=== PATIENT | female | born 1935 | race Caucasian/White ===

== ENCOUNTER 2017-01-26 06:23 | Day surgery (SDC) | payer MEDICARE, BC ==
[~2017-01-26 06:23] MED LIST: ADULT ASPIRIN81 MG PO; ALLOPURINOL100 M1 PO; AMIODARONE HCL200 MG; ASPIRIN ENTERI325 MG PO; ASPIRIN81 M1 PO; AYR SALINE NASA22 ML NS; BACTRIM DS1 TA1 PO; CALCIUM ANTAC1000 MG PO; CELEXA20 MG; CERTAVITE W/LU1 EACH PO; CIPRO500 M1 PO; CITALOPRAM HBR20 M1 PO; CITALOPRAM HBR20 MG; CITALOPRAM HBR20 MG PO; CO Q-10400 MG PO; COUMADIN2 MG; COUMADIN4 MG; CPAP; CULTURELLE1 EACH PO; DARVOCET-N 1001 TAB; DITROPAN5 MG PO; DULCOLAX10 MG PR; DURAGESIC1 PATCH .; ELIQUIS2.5 M1 PO; FLAGYL500 MG PO; FUROSEMIDE40 M2 PO; GABAPENTIN100 M1 PO; H; IPRAT-ALBUT 0.5-3 ML INH; LASIX20 MG PO; LEVAQUIN250 M1 PO; LEVAQUIN750 MG PO; LEVOXYL50 MCG; LISINOPRIL10 MG PO; LISINOPRIL5 MG PO; LOMOTIL1 TA1 PO; MACROBID100 MG/CA1 PO; MELATONIN3 M4 PO; METOPROLOL SUC100 M1 PO; MILK OF MAGNES311 MG PO; MILK OF MAGNESIA PO; NITROFURANTOIN100 M PO; NITROQUICK0.4 MG SL; NORCO 5/325 TAB1 TAB PO; NORCO 5/3251 TAB PO; OMEPRAZOLE20 M2 PO; OXYBUTYNIN CHLOR5 M2 PO; PACERONE200 MG PO; PACERONE400 MG PO; PHENAZOPYRIDIN200 M1 PO; PHENERGAN25 MG PO; POTASSIUM CHLO10 ME2 PO; PRAVACHOL20 MG; PRAVACHOL20 MG PO; PREDNISONE2.5 M1 PO; PREDNISONE5 MG PO; PRILOSEC20 M1 PO; PROMETHAZINE25 MG PO; PYRIDIUM200 MG PO; QUETIAPINE FUMA25 M1 PO; REMERON15 M1 PO; RESTASIS1 EAC1 OP; RESTORIL15 MG PO; SEROQUEL25 M1 PO; SEROQUEL25 MG PO; SYNTHROID100 MCG PO; SYNTHROID50 MCG PO; SYNTHROID75 MC1 PO; SYNTHROID88 MC1 PO; TOPROL XL100 MG; TOPROL XL25 MG PO; TYLENOL325 M1 PO; TYLENOL500 MG PO; ULTRAM50 MG; ULTRAM50 MG PO; VITAMIN D-3400 UNIT PO; VITAMIN D2000 UNIT PO; VITAMIN D3400 UNI5 PO; VITAMIN D400 UNI1 PO; VITAMIN D400 UNIT PO; XANAX0.25 MG PO; XARELTO15 MG PO; ZESTRIL5 M1 PO; ZOFRAN4 MG/2 M1 IV; [UNRECOGNIZED DRUG - OTHER] EACH EYE
[2017-01-26 07:05] LABS: ANION GAP 16 mmol/L (0-20); BLOOD UREA NITROGEN 29 mg/dl (6-24); CALCIUM 9.5 mg/dl (8.5-10.5); CARBON DIOXIDE-VENOUS 24 mmol/L (22-32); CHLORIDE 105 mmol/l (96-110); CREATININE 1.64 mg/dl (0.50-1.10); GLUCOSE 106 mg/dL (70-110); SODIUM 142 mmol/L (135-145); eGFR VALUE FOR BLACK 33 mL/Min
[2017-01-26] MEDS ORDERED: DEMADEX20 M1 PO (07:06)
[2017-01-26 07:08] LABS: POTASSIUM 3.3 mmol/L (3.7-5.1)
[2017-01-26 07:54] LABS: HCT-HEMATOCRIT 30.9 % (34.0-49.0); HGB-HEMOGLOBIN 9.5 gm/dl (12.0-15.5); MCV (MEAN CELL VOLUME) 95.4 fl (82.0-96.0)
== END 2017-01-26 10:32 ==
LOC: ENDOS 06:23 → SHSC 06:26 → ENDOS 08:20
PROVIDERS: Anesthesiology
PROC: 0DB88ZX Excision of Small Intestine, Via Natural or Artificial Opening Endoscopic, Diagnostic (ICD-10-PCS; principal; 2017-01-26)
PROC: 0DJD8ZZ Inspection of Lower Intestinal Tract, Via Natural or Artificial Opening Endoscopic (ICD-10-PCS; 2017-01-26)
DX: K64.8 Other hemorrhoids (principal); K57.30 Diverticulosis of large intestine without perforation or abscess without bleeding; I25.2 Old myocardial infarction; I25.10 Atherosclerotic heart disease of native coronary artery without angina pectoris; I11.0 Hypertensive heart disease with heart failure; I50.32 Chronic diastolic (congestive) heart failure; I42.9 Cardiomyopathy, unspecified; Z86.73 Personal history of transient ischemic attack (TIA), and cerebral infarction without residual deficits; M19.90 Unspecified osteoarthritis, unspecified site; M10.9 Gout, unspecified; G25.81 Restless legs syndrome; M79.7 Fibromyalgia; Z79.899 Other long term (current) drug therapy; K62.89 Other specified diseases of anus and rectum; G47.30 Sleep apnea, unspecified; Z88.8 Allergy status to other drugs, medicaments and biological substances; Z90.710 Acquired absence of both cervix and uterus; Z98.890 Other specified postprocedural states; Z95.0 Presence of cardiac pacemaker